=== PATIENT | female | born 1990 | race Caucasian/White ===

== ENCOUNTER → 2017-06-07 | Outpatient (REF) | payer OTHER, SELFPAY ==
[~2017-06-07] MED LIST: ACET50TA PO; IBUP-1114 PO; PRENTAB55 PO; ZYRT10TA2 PO
== END ==
LOC: M LAB REF 09:40
PROVIDERS: ATTEND Physician Assistant
DX: J02.9 Acute pharyngitis, unspecified (principal)

== ENCOUNTER 2017-07-30 02:44 | Outpatient (CLI) | payer OTHER ==
[~2017-07-30] VITALS: Ht 157.5 cm; Wt 76.5 kg
[2017-07-30 03:10] VITALS: BP 125/82
[2017-07-30] MEDS ORDERED: PRENTAB55 PO (03:33)
[2017-07-30] MEDS ORDERED: ZYRT10TA2 PO (03:33)
== END 2017-07-30 04:50 | disposition home or self-care (01) ==
LOC: M LDO 02:44
PROVIDERS: ATTEND Obstetrics & Gynecology
DX: O47.1 False labor at or after 37 completed weeks of gestation (principal); Z3A.38 38 weeks gestation of pregnancy

== ENCOUNTER 2017-07-30 07:20 | Inpatient (IN) | payer OTHER ==
[~2017-07-30] VITALS: Ht 157.5 cm; Wt 74.0 kg
[2017-07-30] VITALS (8 sets, daily range): BP systolic 122–137; BP diastolic 74–85
[~2017-07-30 07:20] MED LIST changes: -ACET50TA PO; -IBUP-1114 PO
[2017-07-30] MEDS ORDERED: LACTATED RINGER'S 1000 ML IV STA (07:56)
[2017-07-30] MEDS ORDERED: AMPICILLIN SOD 2 GM in D5W MINI-BAG PLUS 100 ML IV STA (07:56)
[2017-07-30 08:22] LABS: MEAN CORPUSCULAR HEMOGLOBIN 30.9 pg (27.0-33.0); MEAN CORPUSCULAR HGB CONC 34.8 g/dl (32.0-36.5); RED CELL DISTRIBUTION WIDTH 12.3 % (11.5-14.5); WHITE BLOOD COUNT 16.9 10^3/uL (4.0-10.0)
[2017-07-30] MEDS ORDERED: OXYTOCIN INJ 10 UNITS/ML VIAL (J2590) IV ONE (09:00)
[2017-07-30] MEDS: PRENATAL VITAMINS CHEWABLE TABLET PO SCH (09:00)
[2017-07-30] MEDS ORDERED: LIDOCAINE 1% MDV INJ 50 ML VIAL SC ONE (09:00)
[2017-07-30] MEDS: DOCUSATE SODIUM 100 MG CAP PO SCH ×2 (09:00→21:14)
[2017-07-30] MEDS ORDERED: DIBUCAINE 1% OINTMENT 30GM TOP PRN (09:30)
[2017-07-30] MEDS ORDERED: RHOGAM 300 MCG (1500 IU) INJ (J2790) IM SCH (09:30)
[2017-07-30] MEDS ORDERED: ACETAMINOPHEN 500 MG TAB PO PRN (09:30)
[2017-07-30] MEDS ORDERED: MEASLES,MUMPS,RUBELLA VACCINE INJ (MMR-II) (90707) SC SCH (09:30)
--- NOTE | 2017-07-30 09:33 | DNPDOC ---
[facility] Delivery Note Delivery Note DATE OF DELIVERY: 07/30/17 at 0848 PREDELIVERY DIAGNOSIS: 38w5d gestation and labor. POST DELIVERY DIAGNOSIS: Delivered. 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 AN[facility]ESIA: lidocaine ESTIMATED BLOOD LOSS: 250 mL. FINDINGS: 6 pound 14 ounce M , Score 8/9 DELIVERY SUMMARY: Blank is a 26yo [id number] s/p uncomplicated normal spontaneous vaginal delivery of live male . Patient had no anesthesia and good pushing efforts. 's head delivered in OA position, restituted TOBIAS. Anterior shoulder delivered with following push and then posterior shoulder and corpus. Infant placed on maternal abdomen. Good cry noted, infant vigorous, moving all extremities. Apgars 8/9. NO nuchal cord. Father of baby cut umbilical cord after clamping twice. Spontaneous delivery of placenta with 3-vessel cord after uterine massage. Small 1mll noted and small bilateral labial lacerations, which were repaired with 3-0 vicryl in routine fashion with complete hemostasis after anesthetizing with 1% lidocaine. Fundus firm at u-2. Baby and mom doing well. NICHOLE REEDER MD Jul 30, 2017 09:33
--- NOTE | 2017-07-30 10:09 | HPEPDOC ---
Obstetrical History & Physical General Date of Admission Jul 30, 2017 at 07:55 History of Present Illness Blank is a 26yo with SIUP at 38w5d who presented overnight with contractions and was found not to be in labor with cervix 1cm dilated and thick , posterior, and sent home. She returned early this morning with increasingly painful contractions. No loss of fluid. No vaginal bleeding. Feels good movement. 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[employer] History: No pertinent history Past Medical History Medical History Benign Surgical History: [place] teeth Family History Significant Family History: No pertinent family hx Social History Marital Status: Family situation: Spouse/partner home Psychosocial History: No pertinent psych hx * Smoker: non-smoker Alcohol: Denies Drugs: denies Imunizations Tdap status: current Influenza Status: current Allergies Coded Allergies: No Known Allergies (Unverified , 07/30/17) Medications Scheduled Cetirizine HCl (Zyrtec Allergy) 10 Mg Tab, 10 MG PO DAILY Miscellaneous Medications Multivitamins/ ( 19) 1 Tab Tab, 1 TAB PO Physical Examination Physical Examination GENERAL: Alert and oriented times three. BREAST: . ABDOMEN: Gravid and non-tender to touch. FETUS: Is vertex (VTX) by sterile vaginal examination (SVE) HEART RATE: Regular rate and rhythm. LUNGS: Clear to auscultation (CTA). EXTREMITIES: No edema. Pertinent Laboratoy Data Blood Type: A+ RBC Antibody Screen: Negative HIV: Negative Hepatitis B: Negative Hepatitis C: Unknown Rapid Plasma Reagin: Nonreactive Rubella: Immune Varicella: Positive Chlamydia/Gonorrhea: Negative Group B Streptococcus: Positive Quad Screen Test: Negative Glucose Tolerance Test: 94 Anatomy Ultrasound Ultrasound Date: Apr 14, 2017 Placenta Location: Posterior Normal Anatomy: Yes (choroid plexus cyst) Placenta Previa: No Steroid Therapy Steroid Therapy: No Vaginal Examination Dilation: 6 cm Effacement: 80+% Station: -1 Cervical Consistency: Soft Cervical Position: Anterior Presentation: Cephalic presentation Assessment Variability: Moderate Accelerations: Positive Decelerations: None Tocometer Contractions: Yes Frequency: regular, every 2-5 min. Duration: greater than 60 seconds Strength: palpated as strong Assessment/Plan Assessment Blank is a 26yo with SIUP at 38w5d by lmp and 7wk ultrasound in active labor with SCE 6/80/-2 with regular, painful ctx and Cat I FHRT. Cephalic by SCE. GBS positive. No ROM noted, though hair felt on exam. Uncomplicated PMHx and course. Plan Admit and orient. 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 Lactated Ringers (LR): Bolus 1000 mL, then at 125 mL/hr. Anticipate normal spontaneous delivery () Dr. Magalis Reeder ([facility])MD NAVIN KATRINA D. MD Jul 30, 2017 08:30
--- NOTE | 2017-07-30 10:22 | HPE ---
DATE OF ADMISSION: 07/30/2017 HISTORY: 26-year-old, 1, para 0, last menstrual period (LMP) 11/01/2016, expected date of confinement (EDC) of 08/08/2017 by ultrasound at 7 weeks and 3 days. She is now at 38 and 5 weeks of gestation, comes in with contractions 5-7 minutes apart, lasting 30 seconds. No loss of fluid. LABORATORY DATA: A positive. HIV negative. Hepatitis negative. RPR negative. Rubella immune. Varicella by history. Pap normal. Urine negative. Gonorrhea and chlamydia negative. 1-hour glucose was 94. GBS positive. Vital Signs: Blood pressure 125/82. Respirations are 22. Pulse is 65. Temperature is 98.2. Urine is 1.005, pH 5, negative, negative, negative. The rest the examination is unremarkable. She is normocephalic, atraumatic. Neck full range of motion. Pupils equal and active to light. Distal pulses symmetric. No evidence of deep vein thrombosis (DVT), pulmonary embolus (PE) or superficial phlebitis. Lungs are clear bilaterally to bases. No wheezes or rhonchi. No costovertebral angle (CVA tenderness. Uterus appropriate symphysis fundus height. Category one with some patterns of sleep in the baby. Mucus plug was significant, but Nitrazine negative. She is 1 cm posterior, -3 station. Membranes are intact. She has no rashes, lesions or pruritus. No arthralgia or myalgia. No complaints of cough, wheezes, shortness of breath or dyspnea on exertion. No frequency. No allergies. No chest pain. No bruising. No bleeding. Neurologic complete. No incontinency, urgency or frequency. No nausea, vomiting, diarrhea or constipation. No heat or cold issues. No diabetic issues. Family history noncontributory. Past medical history noncontributory. Social History: She does not smoke, drink or abuse drugs. 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 No domestic violence. In summary, we have a lady with early [place] Hernández contractions, Category 1 with sleep pattern, Nitrazine negative, moderate amount of mucus plug. Precautions were given. The patient was counseled regarding premature rupture of membranes, labor, bleeding and when to call the provider. She has appointment in 6 days with Maureen Hill. The was discharged undelivered.
[2017-07-30] MEDS ORDERED: AMPICILLIN SOD 1 GM in D5W 50 ML IV SCH (12:00)
[2017-07-30] MEDS: IBUPROFEN 800 MG TAB PO PRN (18:17)
[2017-07-31] MEDS: IBUPROFEN 800 MG TAB PO PRN ×2 (05:56→20:16)
[2017-07-31 06:02] VITALS: BP 128/80
[2017-07-31] MEDS: PRENATAL VITAMINS CHEWABLE TABLET PO SCH (08:44)
[2017-07-31] MEDS: DOCUSATE SODIUM 100 MG CAP PO SCH ×2 (08:44→21:05)
--- NOTE | 2017-07-31 09:11 | IPNPDOC ---
Progress Note Date of Service The patient was seen on 07/31/17 at 09:06. Progress Note Blank is a 26yo [id number] s/p uncomplicated of viable male infant at 0848 on 31 July after presenting in active labor. She is doing well on day 1 with only complaint being cramping during nursing sessions. Motrin helps. She notes lochia is minimal, baby latches well and without issue. Voiding spontaneously without problem. Ambulating and tolerating regular diet. Denies n/v/f/c/CP/SOB. Vitals wnl, afebrile General: WDWN female resting comfortably in bed Abdomen: soft, fundus at u-2cm and firm with no tenderness to palpation Extremities: no edema of BLE Assessment: 26yo s/p uncomplicated doing well PPD 1. Hemodynamically stable, afebrile. Breast feeding. Plan: -Continue routine PP care -Likely discharge home tomorrow given that infant needs to stay 48hr for inadequate GBS prophylaxis during short labor -ibuprofen/tylenol for pain -regular diet -colace -interested in Mirena for contraception, will discuss at routine 6wk PP visit Dr. Nichole Reeder ([facility]), VS, I&O, 24H, Fishbone Vital Signs/I&O Vital Signs Date Time Temp Pulse Resp B/P (MAP) Pulse Ox O2 Delivery O2 Flow Rate FiO2 07/31/17 06:02 98.4 60 18 128/80 (96) 100 Room Air NICHOLE REEDER MD Jul 31, 2017 09:11
--- NOTE | 2017-07-31 12:25 | IPN ---
DATE: 07/31/2017 This patient has requested circumcision of the male infant. After discussing risks and benefits of circumcision, the medical and nonmedical indications, penile block and aftercare, expressed understanding of penile block aftercare and complications, signed and witnessed consent form. All questions were answered and we are awaiting the clearance by the electronic page makeup system operator.
[2017-07-31 18:00] VITALS: BP 127/69
[2017-08-01 06:10] VITALS: BP 120/79
[2017-08-01] MEDS: PRENATAL VITAMINS CHEWABLE TABLET PO SCH (08:18)
[2017-08-01] MEDS: DOCUSATE SODIUM 100 MG CAP PO SCH (08:18)
[2017-08-01] MEDS ORDERED: ACET50TA PO (09:10)
[2017-08-01] MEDS ORDERED: IBUP-1114 PO (09:10)
--- NOTE | 2017-08-01 09:48 | IPNPDOC ---
Progress Note Date of Service The patient was seen on 08/01/17 at 09:45. Progress Note Blank is a 26yo [id number] s/p uncomplicated of viable male infant at 0848 on 31 July after presenting in active labor. She is doing well on day 2 without complaint. Lochia is small, she is without issue. Voiding spontaneously without problem. Ambulating and tolerating regular diet. Denies n/v/f/c/CP/SOB. Vitals wnl, afebrile General: A&O x 3, resting in bed without concern Abdomen: soft, fundus at u-1cm and firm with no tenderness to palpation Extremities: no edema of BLE Assessment: 26yo s/p uncomplicated doing well PPD 2. Hemodynamically stable, afebrile. Breast feeding. Plan: -Discharge to home or [place] as appropriate -Continue routine PP care -ibuprofen/tylenol for pain -regular diet -colace -interested in Mirena for contraception, will discuss at routine 6wk PP visit VS, I&O, 24H, Shahzadbone Vital Signs/I&O Vital Signs Date Time Temp Pulse Resp B/P (MAP) Pulse Ox O2 Delivery O2 Flow Rate FiO2 08/01/17 06:10 98.4 76 16 120/79 (93) 07/31/17 06:02 100 Room Air DOROTHY JOSHUA CNM Aug 01, 2017 09:48
[2017-08-01] MEDS: IBUPROFEN 800 MG TAB PO PRN (09:53)
== END 2017-08-01 14:40 | disposition home or self-care (01) | DRG 775 ==
LOC: M LDO 07:20 → M LDI 07:55 → M OBS 11:57
PROVIDERS: ADMIT Obstetrics & Gynecology; ATTEND Obstetrics & Gynecology
PROC: 10E0XZZ Delivery of Products of Conception, External Approach (ICD-10-PCS; principal; 2017-07-30)
PROC: 0HQ9XZZ Repair Perineum Skin, External Approach (ICD-10-PCS; 2017-07-30)
DX: O99.824 Streptococcus B carrier state complicating childbirth (principal); Z3A.38 38 weeks gestation of pregnancy; O70.0 First degree perineal laceration during delivery; Z37.0 Single live birth